=== PATIENT | female | born 1950 | race African-American/Black ===

== ENCOUNTER 2019-06-25 15:32 | Emergency (ER) | payer OTHER ==
[~2019-06-25] VITALS: Ht 165.1 cm; Wt 109.3 kg
[2019-06-25 15:38] VITALS: BP 145/58
[2019-06-25] MEDS ORDERED: TRAMADOL 50 MG50 MG PO ×2 (16:49→17:24)
[2019-06-25] MEDS ORDERED: NAPROXEN375 MG PO ×2 (16:49→17:24)
[2019-06-25 16:52] LABS: ABSOLUTE NEUTROPHILS 2.6 thou/uL (1.4-8.2); BASOPHILS 1.2 % (0.0-2.0); EOSINOPHILS 5.3 % (0.0-3.0); HEMATOCRIT 40.7 % (37.0-47.0); HEMOGLOBIN 12.7 gm/dL (12.0-15.0); LYMPHOCYTES 42.4 % (24.0-44.0); MCH 26.4 pg (26.0-34.0); MCHC 31.2 g/dL (28.0-37.0); MCV 84.7 fL (80.0-100.0); MONOCYTES 10.5 % (1.0-8.0); PLATELET COUNT 262 thou/uL (150-400); POLYS 40.6 % (36.0-66.0); RDW 15.9 % (10.5-14.5); WBC 6.4 thou/uL (4.0-11.0)
[2019-06-25 17:06] LABS: ANION GAP 12 mmol/L (7-16); BUN 12 mg/dL (7-18); CALCIUM 9.6 mg/dL (8.5-10.1); CHLORIDE 108 mmol/L (98-107); CO2 23 mmol/L (21-32); CREATININE 1.2 mg/dL (0.6-1.0); GLUCOSE 84 mg/dL (74-106); POTASSIUM 3.8 mmol/L (3.5-5.1); SODIUM 143 mmol/L (136-145)
[2019-06-25 17:11] LABS: SGOT 24 U/L (15-37); SGPT 21 U/L (30-65); TOTAL BILIRUBIN 0.6 mg/dL (<0.1-1.0); TOTAL PROTEIN 7.3 g/dL (6.4-8.2); TROPONIN-I <0.06 ng/mL (<0.06)
== END 2019-06-25 18:15 | disposition home or self-care (01) ==
LOC: ER 15:32
PROVIDERS: Emergency Medicine
DX: I25.10 Atherosclerotic heart disease of native coronary artery without angina pectoris (principal); F41.8 Other specified anxiety disorders; F32.9 Major depressive disorder, single episode, unspecified; F17.210 Nicotine dependence, cigarettes, uncomplicated; Z98.890 Other specified postprocedural states; Z95.2 Presence of prosthetic heart valve; Z63.0 Problems in relationship with spouse or partner